=== PATIENT | male | born 1985 | race Hispanic/Latino ===

== ENCOUNTER 2024-09-08 12:11 | Day surgery (SDC) | payer BC ==
[~2024-09-08 12:11] MED LIST: Dexamethasone 4 MG/ML 5 ML MDV ONE; EPINEPHrine 1 MG/ML SDV ONE; Ketorolac 30 MG/ML SDV ONE; Lidocaine 2% 5 ML SDV ONE; Ondansetron 4 MG/2 ML SDV ONE; Propofol 200 MG/20 ML SDV ONE; Ropivacaine 0.5% 5 MG/ML 30 ML SDV ONE; Sugammadex Sodium 200 MG/2 ML VIAL IV ONE; fentaNYL 100 MCG/2 ML SDV ONE
[2024-09-08] MEDS ORDERED: Bupivacaine 0.25% 10 ML SDV ONE (12:26)
[2024-09-08] MEDS: Lactated Ringers 1,000 ML IV SCH (12:30)
[2024-09-08] MEDS ORDERED: cefOXitin 2 GM in Premix Bag 1 BAG IV ONE (12:38)
[2024-09-08] MEDS ORDERED: cefOXitin 2 GM in Water For Injection, Sterile 20 ML IV ONE (12:45)
[2024-09-08] MEDS: EPINEPHrine 1 MG/ML SDV ONE (13:17)
[2024-09-08] MEDS: Bupivacaine 0.5% 30 ML SDV ONE (13:17)
[2024-09-08] MEDS ORDERED: Sodium Chloride 0.9% 10 ML Syringe FLUSH PRN (13:18)
[2024-09-08] MEDS ORDERED: Sodium Chloride 0.9% 10 ML Syringe FLUSH SCH (13:30)
[2024-09-08] MEDS ORDERED: Ondansetron 4 MG/2 ML SDV IVPUSH PRN (13:59)
[2024-09-08] MEDS ORDERED: fentaNYL 100 MCG/2 ML SDV IVPUSH PRN (13:59)
[2024-09-08] MEDS ORDERED: HYDROmorphone 0.5 MG/0.5 ML Syringe IVPUSH PRN (13:59)
== END 2024-09-08 15:14 | disposition home or self-care (01) ==
LOC: JD.SDS 12:11 → EDSEX 12:11 → JD.SDS 15:14
PROVIDERS: ATTEND Surgery
DX: K35.33 Acute appendicitis with perforation, localized peritonitis, and gangrene, with abscess (principal)
CPT/HCPCS: 44970; J0171; J0665; J1100; J1885; J2405; J2704; J2795; J3010; J7120; 00840; 64488; 99140; J3490